=== PATIENT | female | born 1980 | race Caucasian/White ===

== ENCOUNTER 2016-06-21 17:02 | Emergency (ER) | payer OTHER ==
[~2016-06-21] VITALS: Ht 162.6 cm; Wt 90.7 kg
[~2016-06-21 17:02] MED LIST: LEVO0.074 PO
[2016-06-21 17:58] VITALS: BP 123/79
--- NOTE | 2016-06-21 18:30 | NUR ---
P36/F BIB SELF C/O COUGH,SORE TROAT X 3 DAYS. PT DENIES N/V/D; SKIN IS PINK/WARM/DRY; AAOX4 WITH EVEN AND STEADY GAIT; LUNGS CLEAR BL; HR EVEN AND REGULAR; PT DENIES ANY FEVER, CP OR SOB AT THIS TIME; PATIENT STATES PAIN OF 0/10 AT THIS TIME; VSS; PATIENT POSITIONED FOR COMFORT; HOB ELEVATED; BEDRAILS UP X2; BED DOWN. ER MD MADE AWARE OF PT STATUS.
[2016-06-21 19:18] VITALS: BP 120/75
--- NOTE | 2016-06-21 19:20 | NUR ---
Patient discharged with v/s stable. Written and verbal after care instructions given and explained. Patient verbalized understanding. Ambulatory with steady gait. All questions addressed prior to discharge. Advised to follow up with PMD.
== END 2016-06-21 19:20 | disposition home or self-care (01) ==
LOC: MED 17:02
DX: J06.9 Acute upper respiratory infection, unspecified (principal)
CPT/HCPCS: 99283

== ENCOUNTER 2016-12-09 13:53 | Emergency (ER) | payer OTHER ==
[~2016-12-09] VITALS: Ht 162.6 cm; Wt 91.2 kg
[2016-12-09 13:56] VITALS: BP 131/76
[2016-12-09] MEDS ORDERED: NACL 0.9% 1,000 ML IV ONE (15:15)
[2016-12-09 15:47] LABS: BASOPHILS # (AUTO) 0.2 K/uL (0.00-0.22); HEMOGLOBIN 10.6 g/dL (12.0-16.0); LYMPHOCYTES # (AUTO) 1.9 K/uL (2.5-16.5); MONOCYTES # (AUTO) 0.4 K/uL (0.8-1.0)
[2016-12-09 15:52] LABS: EOSINOPHILS # (AUTO) 0.2 K/uL (0-0.4); HEMATOCRIT 33.6 % (36-48); MEAN CORPUSCULAR HEMOGLOBIN 23 pg (27-31); MEAN CORPUSCULAR HGB CONC 32 g/dL (33-37); MEAN CORPUSCULAR VOLUME 74 fL (80-94); NEUTROPHILS # (AUTO) 4.8 K/uL (1.8-7.7); PLATELET COUNT (AUTO) 404 K/uL (140-450); RED BLOOD CELL COUNT(AUTO) 4.53 MIL/uL (4.20-5.40); RED CELL DISTRIBUTION WIDTH 16.4 % (11.6-13.7); WHITE BLOOD COUNT (AUTO) 7.5 K/uL (4.8-10.8)
[2016-12-09 15:55] LABS: ANION GAP 12.4 (8-16); CARBON DIOXIDE 28.3 mmol/L (21-32); CREATININE 0.7 mg/dL (0.6-1.3); POTASSIUM 3.7 mmol/L (3.5-5.1)
[2016-12-09 16:01] LABS: ALBUMIN 3.5 g/dL (3.4-5.0); TOTAL BILIRUBIN 0.2 mg/dL (0.0-1.0)
[2016-12-09 16:33] VITALS: BP 108/64
== END 2016-12-09 16:34 | disposition home or self-care (01) ==
LOC: MED 13:53
DX: N93.8 Other specified abnormal uterine and vaginal bleeding (principal); Z79.899 Other long term (current) drug therapy
CPT/HCPCS: 36415; 80053; 81002; 81025; 85025; 96360; 99284; J7030

== ENCOUNTER 2020-11-21 19:36 | Emergency (ER) | payer OTHER ==
[~2020-11-21] VITALS: Ht 162.6 cm; Wt 86.2 kg
[~2020-11-21 19:36] MED LIST changes: +LEVO0.0712 PO; -LEVO0.074 PO
[2020-11-21 19:47] VITALS: BP 124/78
--- NOTE | 2020-11-21 20:11 | NUR ---
PT AMBULATED TO BED 8
--- NOTE | 2020-11-21 20:20 | NUR ---
INITAL CONTACT WITH PATIENT - C/O GENERALIZED CHEST PAIN. DENIES SOB. DENIES INJURY/TRAUMA. REPORTS INCREASE IN PAIN WITH MOVEMENT AND INSPIRATION. NO CARDIAC HISTORY REPORTED. IN BED, PENDING MSE. ATTATCHED TO CONTINOUS MONITORING.
[2020-11-21 20:22] VITALS: BP 124/78
[2020-11-21 21:04] LABS: BASOPHILS # (AUTO) 0.1 K/uL (0.00-0.22); BASOPHILS % (AUTO) 0.7 % (0.0-2.0); EOSINOPHILS # (AUTO) 0.3 K/uL (0-0.4); EOSINOPHILS % (AUTO) 2.6 % (0.0-4.0); HEMATOCRIT 38.4 % (36-48); HEMOGLOBIN 13.2 g/dL (12.0-16.0); LYMPHOCYTES # (AUTO) 2.9 K/uL (2.5-16.5); LYMPHOCYTES % (AUTO) 29.7 % (20.5-51.1); MEAN CORPUSCULAR HEMOGLOBIN 31 pg (27-31); MEAN CORPUSCULAR HGB CONC 34 g/dL (33-37); MEAN CORPUSCULAR VOLUME 88.7 fL (80-94); MONOCYTES # (AUTO) 0.5 K/uL (0.8-1.0); MONOCYTES % (AUTO) 4.8 % (1.7-9.3); NEUTROPHILS # (AUTO) 6.1 K/uL (1.8-7.7); NEUTROPHILS % (AUTO) 62.2 % (42.2-75.2); PLATELET COUNT (AUTO) 327 K/uL (140-450); RED BLOOD CELL COUNT(AUTO) 4.33 MIL/uL (4.20-5.40); RED CELL DISTRIBUTION WIDTH 13.3 % (11.6-13.7); WHITE BLOOD COUNT (AUTO) 9.8 K/uL (4.8-10.8)
[2020-11-21 21:14] LABS: ALBUMIN 3.5 g/dL (3.4-5.0); ANION GAP 8.6 (8-16); CARBON DIOXIDE 30.9 mmol/L (21-32); CREATININE 0.7 mg/dL (0.6-1.3); POTASSIUM 3.5 mmol/L (3.5-5.1); TOTAL BILIRUBIN 0.1 mg/dL (0.0-1.0)
== END 2020-11-21 22:20 | disposition home or self-care (01) ==
LOC: MED 19:36
DX: R07.9 Chest pain, unspecified (principal); E03.9 Hypothyroidism, unspecified; Z90.710 Acquired absence of both cervix and uterus; Z98.890 Other specified postprocedural states; Z79.899 Other long term (current) drug therapy
CPT/HCPCS: 36415; 71045; 80053; 83690; 84484; 85025; 93005; 99285; Q0092

== ENCOUNTER 2021-08-07 19:13 | Emergency (ER) | payer OTHER ==
[~2021-08-07] VITALS: Ht 162.6 cm; Wt 97.5 kg
[2021-08-07 19:24] VITALS: BP 112/70
[2021-08-07] MEDS ORDERED: CEPH-588 PO (19:47)
[2021-08-07] MEDS ORDERED: IBUP-2218 PO (19:47)
[2021-08-07 20:24] VITALS: BP 112/70
--- NOTE | 2021-08-07 20:24 | NUR ---
Patient discharged with v/s stable. Written and verbal after care instructions given and explained. Patient alert, oriented and verbalized understanding of instructions. Ambulatory with steady gait. All questions addressed prior to discharge. ID band removed. Patient advised to follow up with PMD. Rx of keflex and ibuprofen given. Patient educated on indication of medication including possible reaction and side effects. Opportunity to ask questions provided and answered.
--- NOTE | 2021-08-07 20:24 | NUR ---
seen by ermd no nursing interventions needed for patient.
== END 2021-08-07 20:24 | disposition home or self-care (01) ==
LOC: MED 19:13
DX: L03.116 Cellulitis of left lower limb (principal); L03.115 Cellulitis of right lower limb; L03.032 Cellulitis of left toe; L03.031 Cellulitis of right toe; E03.9 Hypothyroidism, unspecified; Z79.1 Long term (current) use of non-steroidal anti-inflammatories (NSAID); Z79.2 Long term (current) use of antibiotics; Z79.899 Other long term (current) drug therapy
CPT/HCPCS: 99283

== ENCOUNTER 2022-12-09 15:04 | Emergency (ER) | payer OTHER ==
[~2022-12-09 15:04] MED LIST changes: +CEPH-588 PO; +IBUP-2218 PO
== END 2022-12-09 15:18 | disposition left against medical advice (07) ==
LOC: MED 15:04
DX: T14.8XXA Other injury of unspecified body region, initial encounter (principal); Z53.21 Procedure and treatment not carried out due to patient leaving prior to being seen by health care provider; W57.XXXA Bitten or stung by nonvenomous insect and other nonvenomous arthropods, initial encounter; Y93.89 Activity, other specified; Y92.89 Other specified places as the place of occurrence of the external cause; Y99.8 Other external cause status

== ENCOUNTER 2023-07-20 15:41 | Emergency (ER) | payer OTHER ==
[~2023-07-20] VITALS: Ht 162.6 cm; Wt 95.3 kg
[2023-07-20 15:47] VITALS: BP 131/77; PULSE 67; RESP 18; TEMP 97.7; O2SAT 98
[2023-07-20] MEDS ORDERED: METH-1681 PO (16:55)
[2023-07-20] MEDS ORDERED: FLONAS NS (16:55)
[2023-07-20] MEDS ORDERED: IBUP-2213 PO (16:55)
== END 2023-07-20 17:04 | disposition home or self-care (01) ==
LOC: MED 15:41
DX: S16.1XXA Strain of muscle, fascia and tendon at neck level, initial encounter (principal); R03.0 Elevated blood-pressure reading, without diagnosis of hypertension; E03.9 Hypothyroidism, unspecified; Z79.1 Long term (current) use of non-steroidal anti-inflammatories (NSAID); Z79.899 Other long term (current) drug therapy; X58.XXXA Exposure to other specified factors, initial encounter; Y93.89 Activity, other specified; Y92.89 Other specified places as the place of occurrence of the external cause; Y99.8 Other external cause status
CPT/HCPCS: 99283